=== PATIENT | female | born 1935 | race African-American/Black ===

== ENCOUNTER 2020-12-02 16:49 | Emergency (ER) | payer OTHER, MEDICAID ==
[~2020-12-02] VITALS: Ht 167.6 cm; Wt 81.5 kg
[2020-12-02 18:32] LABS: BASOPHILS % 0.3 % (0.0-2.0); EOSINOPHILS % 1.6 % (0.0-5.0); HEMATOCRIT. 26.3 % (36.0-48.0); HEMOGLOBIN. 8.5 g/dL (12.0-16.0); LYMPHOCYTES % 24.3 % (20.0-50.0); MEAN CORPUSCULAR HEMOGLOBIN 23.9 pg (28.0-32.0); MEAN CORPUSCULAR VOLUME 74.2 fL (81.0-99.0); MEAN PLATELET VOLUME 8.4 fl (7.4-10.4); MONOCYTES % 9.5 % (2.0-8.0); NEUTROPHILS % 64.3 % (40.0-76.0); PLATELET 332 x1000/uL (130-400); RED BLOOD CELL COUNT 3.54 mill/uL (4.2-5.4); RED CELL DISTRIBUTION WIDTH 17.2 % (11.6-14.6)
[2020-12-02 18:43] LABS: CHLORIDE 102 mEq/L (98-107)
[2020-12-02 18:47] LABS: ETHANOL BLOOD < 10 mg/dL
[2020-12-02 19:00] LABS: CLARITY URINE CLOUDY (CLEAR); COLOR URINE YELLOW (YELLOW); KETONES URINE NEGATIVE (NEGATIVE); LEUKOCYTE ESTERASE URINE 3+ (NEGATIVE); NITRITE URINE NEGATIVE (NEGATIVE); OCCULT BLOOD URINE NEGATIVE (NEGATIVE); PROTEIN URINE NEGATIVE (NEGATIVE)
[2020-12-02 19:10] LABS: *AMPHETAMINES SCREEN URINE NEGATIVE (NEGATIVE); *BARBITURATES SCREEN URINE NEGATIVE (NEGATIVE); *COCAINE SCREEN URINE NEGATIVE (NEGATIVE)
[2020-12-02 19:11] LABS: *BENZODIAZEPINES SCREEN URINE NEGATIVE (NEGATIVE); CANNABINOID URINE SCREEN NEGATIVE (NEGATIVE); METHADONE URINE SCREEN NEGATIVE (NEGATIVE); OPIATES URINE SCREEN NEGATIVE (NEGATIVE); PHENCYCLIDINE URINE SCREEN NEGATIVE (NEGATIVE)
[2020-12-02] MEDS ORDERED: GUAIFENESIN 200MG/10ML SUGAR FREE UDC PO PRN (21:45)
[2020-12-02] MEDS ORDERED: KCL 10MEQ/50ML PREMIX 50 ML IV NR (21:45)
[2020-12-02] MEDS ORDERED: LEVOFLOXACIN 500MG PREMIX 100 ML IV NR (21:45)
[2020-12-02] MEDS ORDERED: CLONIDINE 0.1MG TABLET PO PRN (21:45)
[2020-12-02] MEDS ORDERED: MAGNESIUM/ALUMINUM HYDROXIDE/SIMETHICONE 30ML UDC PO PRN (21:45)
[2020-12-02] MEDS ORDERED: ONDANSETRON HCL 4MG/2ML INJ IV PRN (21:45)
[2020-12-02] MEDS ORDERED: ENOXAPARIN 40MG/0.4ML SYR SUBCUT SCH (21:45)
[2020-12-02] MEDS ORDERED: DOCUSATE SODIUM 100MG CAPSULE PO PRN (21:45)
[2020-12-02] MEDS ORDERED: ACETAMINOPHEN 325MG TABLET PO PRN (21:45)
[2020-12-03 01:00] VITALS: BP 184/78
[2020-12-03] MEDS ORDERED: ASPIRIN 81MG EC TABLET PO SCH (09:00)
[2020-12-03] MEDS ORDERED: LEVOFLOXACIN 250MG PREMIX 50 ML IV SCH (11:00)
== END 2020-12-03 02:00 | disposition home or self-care (01) ==
LOC: ER 16:49 → EDBEDREQ 19:09 → ER 12-03 02:00 → CANBEDREQ 12-03 04:29
DX: R41.82 Altered mental status, unspecified (principal); I10 Essential (primary) hypertension; E87.6 Hypokalemia; R73.9 Hyperglycemia, unspecified; R79.89 Other specified abnormal findings of blood chemistry; R23.8 Other skin changes; H91.90 Unspecified hearing loss, unspecified ear; Z86.73 Personal history of transient ischemic attack (TIA), and cerebral infarction without residual deficits
CPT/HCPCS: 36415; 70450; 71045; 80053; 80305; 80320; 81003; 82140; 83036; 83605; 83880; 84484; 85025; 87086; 93005; 93970; 96361; 96365; 96366; 96372; 99285; J1650; J1956; J3480; G0480

== ENCOUNTER 2022-08-18 18:20 | Emergency (ER) | payer OTHER, MEDICAID ==
[~2022-08-18] VITALS: Ht 165.1 cm; Wt 100.0 kg
[2022-08-18] MEDS ORDERED: LABETALOL HCL VIAL 20 MG/4 ML VIAL IV ONE (22:30)
[2022-08-18 22:32] LABS: BASOPHILS % 0.3 % (0.0-2.0); HEMATOCRIT. 34.5 % (36.0-48.0); HEMOGLOBIN. 10.9 g/dL (12.0-16.0); LYMPHOCYTES % 17.4 % (20.0-50.0); MEAN CORPUSCULAR VOLUME 72.8 fL (81.0-99.0); MEAN PLATELET VOLUME 7.9 fl (7.4-10.4); MONOCYTES % 3.8 % (2.0-8.0); NEUTROPHILS % 78.5 % (40.0-76.0); PLATELET 316 x1000/uL (130-400); RED BLOOD CELL COUNT 4.73 mill/uL (4.2-5.4); RED CELL DISTRIBUTION WIDTH 17.2 % (11.6-14.6)
[2022-08-18 22:42] LABS: PROTHROMBIN TIME 10.9 sec (9.6-11.0)
[2022-08-18 22:43] LABS: CHLORIDE 100 mEq/L (98-107)
[2022-08-18] MEDS ORDERED: LABETALOL 5MG/ML SYR 20 MG/4 ML SYRINGE IV NR (22:45)
[2022-08-19] MEDS ORDERED: PANTOPRAZOLE SODIUM 40 MG/VIAL IV ONE (00:45)
[2022-08-19] MEDS ORDERED: ONDANSETRON HCL 4MG/2ML INJ IV ONE (00:45)
[2022-08-19 02:30] VITALS: BP 169/63
[2022-08-19 02:53] LABS: CLARITY URINE CLOUDY (CLEAR); COLOR URINE YELLOW (YELLOW); KETONES URINE 1+ (NEGATIVE); LEUKOCYTE ESTERASE URINE 1+ (NEGATIVE); NITRITE URINE NEGATIVE (NEGATIVE); OCCULT BLOOD URINE TRACE (NEGATIVE); PH URINE 8.5 (4.5-8.0); PROTEIN URINE 2+ (NEGATIVE); SPECIFIC GRAVITY URINE 1.018 (1.005-1.030)
== END 2022-08-19 02:53 | disposition short-term general hospital (02) ==
LOC: ER 18:20 → CANBEDREQ 08-19 09:57
DX: K92.0 Hematemesis (principal); K92.2 Gastrointestinal hemorrhage, unspecified; F03.90 Unspecified dementia, unspecified severity, without behavioral disturbance, psychotic disturbance, mood disturbance, and anxiety; E11.9 Type 2 diabetes mellitus without complications; E78.00 Pure hypercholesterolemia, unspecified; I10 Essential (primary) hypertension
CPT/HCPCS: 36415; 71045; 74176; 80053; 81003; 83690; 83880; 84484; 85025; 85610; 87086; 93005; 96374; 96375; 99285; C9113; J2405; J3490

== ENCOUNTER 2024-10-08 17:18 | Emergency (ER) | payer OTHER ==
[~2024-10-08] VITALS: Ht 165.1 cm; Wt 81.0 kg
[2024-10-08 17:24] VITALS: TEMP 98.7; O2SAT 98
[2024-10-08 20:10] VITALS: BP 176/54; PULSE 69; RESP 16; O2SAT 100
[2024-10-08] MEDS: HYDROCODONE/ACETAMINOPHEN 5/325MG TABLET PO ONE (20:10)
[2024-10-08] MEDS ORDERED: TOPUD MT (20:20)
== END 2024-10-08 21:05 | disposition home or self-care (01) ==
LOC: ER 17:18
DX: M79.672 Pain in left foot (principal); E78.00 Pure hypercholesterolemia, unspecified; E11.9 Type 2 diabetes mellitus without complications; I10 Essential (primary) hypertension; Z88.8 Allergy status to other drugs, medicaments and biological substances; Z86.73 Personal history of transient ischemic attack (TIA), and cerebral infarction without residual deficits
CPT/HCPCS: 73590; 73620; 99284

== ENCOUNTER 2024-11-16 22:47 | Emergency (ER) | payer OTHER, MEDICAID ==
[~2024-11-16] VITALS: Ht 160 cm; Wt 65.0 kg
[~2024-11-16 22:47] MED LIST: TOPUD MT
[2024-11-16 22:49] VITALS: O2SAT 99
[2024-11-17 01:41] LABS: HEMATOCRIT. 33.4 % (36.0-48.0); HEMOGLOBIN. 10.2 g/dL (12.0-16.0); MEAN CORPUSCULAR HGB CONC 30.6 g/dL (31.0-37.0); MEAN CORPUSCULAR VOLUME 75.2 fL (81.0-99.0); MEAN PLATELET VOLUME 7.8 fl (7.4-10.4); PLATELET 352 x1000/uL (130-400); RED BLOOD CELL COUNT 4.45 mill/uL (4.2-5.4); WHITE BLOOD COUNT 6.1 x1000/uL (4.5-11.0)
[2024-11-17 01:48] LABS: CHLORIDE 106 mEq/L (98-107); POTASSIUM 3.5 mEq/L (3.5-5.1); SODIUM 141 mEq/L (136-145)
[2024-11-17 01:49] LABS: CARBON DIOXIDE 28 mEq/L (21-32)
[2024-11-17 01:50] LABS: CALCIUM 8.9 mg/dL (8.7-10.4)
[2024-11-17 01:54] LABS: CREATININE 0.8 mg/dL (0.6-1.0); GLUCOSE 115 mg/dL (70-105); UREA NITROGEN BLOOD 10 mg/dL (9-23)
[2024-11-17 01:55] LABS: TROPONIN I HIGH SENSITIVITY 16 ng/L (3.0-34)
[2024-11-17 02:08] LABS: DIFFERENTIAL COMMENT 1
[2024-11-17] MEDS ORDERED: AZIT250T12 MT (02:16)
[2024-11-17] MEDS ORDERED: GUAI-450 MT (02:16)
[2024-11-17] MEDS ORDERED: TOPUD MT (06:32)
[2024-11-17] MEDS ORDERED: LABETALOL 5MG/ML 4ML INJ IV ONE (07:15)
[2024-11-17] MEDS: LABETALOL 5MG/ML 4ML INJ IV NR (08:50)
[2024-11-17] MEDS: HYDRALAZINE HCL 10MG TABLET PO ONE (08:50)
[2024-11-17 10:59] VITALS: BP 149/45; PULSE 65; RESP 16; TEMP 35.72508; O2SAT 97
[2024-11-17 14:12] LABS: ANISOCYTOSIS 1+; MICROCYTOSIS 1+; PLATELET ESTIMATE NORMAL
== END 2024-11-17 10:58 | disposition home or self-care (01) ==
LOC: ER 22:47
DX: J06.9 Acute upper respiratory infection, unspecified (principal); I11.0 Hypertensive heart disease with heart failure; I50.9 Heart failure, unspecified; E78.00 Pure hypercholesterolemia, unspecified; E11.9 Type 2 diabetes mellitus without complications; F03.90 Unspecified dementia, unspecified severity, without behavioral disturbance, psychotic disturbance, mood disturbance, and anxiety; Z20.822 Contact with and (suspected) exposure to COVID-19; Z86.73 Personal history of transient ischemic attack (TIA), and cerebral infarction without residual deficits; Z88.8 Allergy status to other drugs, medicaments and biological substances; Z91.041 Radiographic dye allergy status
CPT/HCPCS: 99285; 71045; 36415; 96374; 87426; 80048; 85025; 84484; 87804 ×2; J3490